=== PATIENT | female | born 1955 | race Caucasian/White ===

== ENCOUNTER 2017-01-07 21:03 | Emergency (ER) | payer OTHER ==
[2017-01-07 21:15] VITALS: BP 111/55; BMI 36.0
--- NOTE | 2017-01-07 22:21 | DR.GENAD ---
HPI - PCP Primary Care Physician: Ian KILLIAN - Complaint/Symptoms Chief Complaint Doctors Comments: Patient states she has had a head cough with left ear feeling like something is moving in her ear for the past three days. States she went to see Dr. Ac and he put her on Levaquin and she is not getting any better. States the left side feels like a sloughing sound in her ear. she has had a cough that has been non productive. she denies chest pain of SOB. She denies alcohol or tobacco usage. She has been taking the antibiotics with out any improvement. Chief Complaint:: HEAD COLD, THINKS SHE MAY HAVE FLUID BEHIND EAR. COUGH Self Treatment fo Chief Complaint: CHERRTUSUSIN, LEVAQUIN, - Nurses notes reviewed Nurses Notes Review: Yes - Source History Provided: Patient - Mode of Arrival Mode of Arrival: Ambulatory - Timing Onset of Chief Complaint: 11/30/16 Came on: Gradually - Duration Duration: Intermittent How lon Duration: Days - Location Location: left ear pressure - Severity Severity: Moderate - Modifying Factors Worsens:: nothing Improves:: nothing PMH - PMH Past Medical History: Yes Past Medical History: Arthritis, Hypertension, Hypothyroidism Past Surgical History: Yes Surgical History: Hysterectomy, Joint Replacement Past Surgical History Comment: CYST REMOVED, RIGHT SHOULDER - Family History History of Family Medical Conditions: Yes Family Medical History: Diabetes Mellitus, Cancer, CT, Coronary Artery Disease, Heart Failure, Hypertension - Social History Does patient currently use any type of tobacco product: No Have you used tobacco products in the last 12 months: No Type of Tobacco Use: None Does any household member use tobacco: No Alcohol Use: None Do you use any recreational Drugs:: No Lives With: Spouse Lives Where: Home - infectious screening In the last 2 months have you had wt loss of >10#?: NO Have you had fever, night sweats or hemotysis?: No Have you traveled outside the country in the last 6 months?: No Isolation: Standard PE - Vital Signs Vitals: Temperature 98.5 F Pulse Rate 90 Respiratory Rate 20 Blood Pressure 111/55 O2 Sat by Pulse Oximetry 95 - Diagnosis Discharge Problem: Bronchitis, Acute otitis media with effusion of left ear, Sinusitis, acute ethmoidal - Discharge Plan Disposition: 01 HOME, SELF-CARE Condition: Stable Prescriptions: Albuterol Sulfate [Proair Hfa] 2 puff INH QID PRN #1 aer PRN Reason: Azithromycin [Zithromax Z-David 5-day] 1 dose PO DAILY #6 tab Fluticasone Nasal [place] [FLONASE NASAL SPRAY *] 2 sprays ENOSTRIL DAILY #1 each - Follow ups/Referrals Follow ups/Referrals: [facility],None [Primary Care Provider] - 3 days - Instructions Instructions: Acute Bronchitis, [id number], Sinusitis, Adult, Otitis Media With Effusion
[2017-01-07] MEDS ORDERED: SOLU-MEDROL 125 MG VIAL IM ONE (22:33)
[2017-01-07] MEDS ORDERED: ROCEPHIN VIAL 1 GM IM ONE (22:33)
[2017-01-07] MEDS ORDERED: SOLU-MEDROL 125 MG VIAL ONE (22:37)
[2017-01-07] MEDS ORDERED: XYLOCAINE 1 % (PLAIN) ONE (22:38)
[2017-01-07] MEDS ORDERED: ROCEPHIN VIAL 1 GM ONE (22:38)
== END 2017-01-07 23:00 | disposition home or self-care (01) ==
LOC: ER 21:03
DX: J40 Bronchitis, not specified as acute or chronic (principal); H65.199 Other acute nonsuppurative otitis media, unspecified ear; J01.80 Other acute sinusitis
CPT/HCPCS: 96372; 99282; J0696; J2001; J2930